=== PATIENT | male | born 1980 | race Caucasian/White ===

== ENCOUNTER 2016-10-26 15:34 | Emergency (ER) | payer OTHER ==
[~2016-10-26] VITALS: Ht 180.3 cm; Wt 88.5 kg
[2016-10-26 15:47] VITALS: BP 120/92
[2016-10-26] MEDS ORDERED: ACETAMINOPHEN EXTRA STRENGTH 500 MG TAB ONE (15:52)
--- NOTE | 2016-10-26 17:28 | NUR ---
Patient ambulated to bed 2. RN evaluating patient at bedside.
--- NOTE | 2016-10-26 17:49 | NUR ---
Dr. Shelton evaluating patient at bedside.
[2016-10-26] MEDS ORDERED: IBUPROFEN 800 MG TAB PO ONE (18:00)
--- NOTE | 2016-10-26 18:24 | NUR ---
PATIENT PRESENTS TO ED DUE TO FEVER WITH HEADACHE AND BODY ACHES, WITH A LITTLE BIT COUGH X1 DAY . PT STATES IT STARTED YESTERDAY, DENIES N/V/D; SKIN IS PINK/WARM/DRY; AAOX4 WITH EVEN AND STEADY GAIT; LUNGS CLEAR BL; HR EVEN AND REGULAR; PT DENIES ANY FEVER, CP, SOB, PATIENT STATES PAIN OF 7/10 AT THIS TIME; PATIENT POSITIONED FOR COMFORT; HOB ELEVATED; BEDRAILS UP X2; BED DOWN. PT AAO
--- NOTE | 2016-10-26 19:11 | NUR ---
PT SLEEPING, REPORT GIVEN TO BRADLY
--- NOTE | 2016-10-26 19:46 | NUR ---
MOVED TO ER OF1
--- NOTE | 2016-10-26 20:02 | NUR ---
REPORT RECEIVED TO D/C PT FROM GRISEL ALFARO.
--- NOTE | 2016-10-26 20:04 | NUR ---
Patient discharged with v/s stable. Written and verbal after care instructions given and explained. Patient alert, oriented and verbalized understanding of instructions. Ambulatory with steady gait. All questions addressed prior to discharge. ID band removed. Patient advised to follow up with PMD. Rx of tylenol with codeine N0#3,ZITA given. Patient educated on indication of medication including possible reaction and side effects. Opportunity to ask questions providXICILLIN 00MG TID, NAPROSYN 500MG BID ed and answered.
[2016-10-26 20:49] VITALS: BP 119/71
== END 2016-10-26 20:00 | disposition home or self-care (01) ==
LOC: MED 15:34
DX: J02.9 Acute pharyngitis, unspecified (principal)

== ENCOUNTER 2017-04-15 19:07 | Emergency (ER) | payer OTHER ==
[~2017-04-15] VITALS: Ht 180.3 cm; Wt 88.5 kg
[2017-04-15 19:18] VITALS: BP 109/60
[2017-04-15] MEDS ORDERED: KETOROLAC 60 MG/2 ML VIAL IM ONE (20:25)
[2017-04-15 21:25] VITALS: BP 109/60
== END 2017-04-15 21:25 | disposition home or self-care (01) ==
LOC: MED 19:07
DX: S00.03XA Contusion of scalp, initial encounter (principal); G89.29 Other chronic pain; M25.562 Pain in left knee; W22.8XXA Striking against or struck by other objects, initial encounter; Y93.89 Activity, other specified; Y92.89 Other specified places as the place of occurrence of the external cause; Y99.8 Other external cause status
CPT/HCPCS: 96372; 99283; J1885

== ENCOUNTER 2017-11-30 12:59 | Emergency (ER) | payer OTHER ==
[~2017-11-30] VITALS: Ht 180.3 cm; Wt 88.5 kg
[2017-11-30 13:02] VITALS: BP 99/60
--- NOTE | 2017-11-30 13:05 | NUR ---
PATIENT AMBULATED TO [facility]
--- NOTE | 2017-11-30 13:06 | NUR ---
37/M BIB C/O right thumb laceration ; no active bleeding; CAP REFILL<3 SEC AT THIS TIME. pt states he was hammering and cut his hand on metal part of the car.AAOX4 WITH EVEN AND STEADY GAIT; LUNGS CLEAR BL. 5/10 AT THIS TIME.
--- NOTE | 2017-11-30 13:21 | NUR ---
PATIENTMOVED TO BED 12 AT THIS TIME.
--- NOTE | 2017-11-30 13:31 | NUR ---
Colten singh in [facility] - 11/30/17 at 1332 by [email or web address] Patient being reevaluated by DR ROSARIO at bedside.
[2017-11-30] MEDS ORDERED: LIDOCAINE MPF 1% - **ER/OR** 5 ML ONE (13:37)
--- NOTE | 2017-11-30 13:39 | NUR ---
PER PT RECIEVED TDAP 2 YEARS AGO; REFUSE TDAP THIS TIME, DR ROSARIO NOTIFIED
[2017-11-30] MEDS ORDERED: BACITRACIN OINT 500 UNITS/GM PKT TP ONE (14:15)
[2017-11-30 14:37] VITALS: BP 116/76
== END 2017-11-30 14:37 | disposition home or self-care (01) ==
LOC: MED 12:59
DX: S61.011A Laceration without foreign body of right thumb without damage to nail, initial encounter (principal); W22.8XXA Striking against or struck by other objects, initial encounter; Y93.89 Activity, other specified; Y92.89 Other specified places as the place of occurrence of the external cause; Y99.8 Other external cause status
CPT/HCPCS: 12001; 99283; J2001; 90715

== ENCOUNTER 2018-06-22 20:20 | Emergency (ER) | payer OTHER ==
[~2018-06-22] VITALS: Ht 180.3 cm; Wt 95.3 kg
[2018-06-22 20:25] VITALS: BP 107/78
--- NOTE | 2018-06-22 20:28 | NUR ---
TO LOBBY A/W BED, REGINA OCONNELL NOTED
[2018-06-22 20:29] VITALS: BP 107/78
--- NOTE | 2018-06-22 23:25 | NUR ---
PATIENT LEFT WITHOUT BEING SEEN BY DR. MARES. NO FURTHER CARE PROVIDED FOR PATIENT.
== END 2018-06-22 23:25 | disposition left against medical advice (07) ==
LOC: MED 20:20
DX: R42 Dizziness and giddiness (principal); Z53.21 Procedure and treatment not carried out due to patient leaving prior to being seen by health care provider